=== PATIENT | male | born 1950 | race Caucasian/White ===

== ENCOUNTER → 2019-05-31 | Outpatient (CLI) | payer MEDICARE, OTHER ==
[2019-05-31 11:28] LABS: HCT 44.9 % (39.0-53.0); HGB 15.5 gm/dL (13.0-17.5); MCH 30.5 pg (25.0-35.0); MCHC 34.5 g/dL (31.0-37.0); MCV 88.2 fL (80.0-100.0); Mean Platelet Volume 7.2; Platelet Count 162 k/uL (150-450); RBC 5.09 m/uL (4.30-5.90); RDW 13.1 % (11.5-15.5); WBC 5.3 k/uL (3.8-10.6)
[2019-05-31 11:33] LABS: Appearance,Urine Clear (Clear); Bilirubin,Urine Negative (Negative); Blood,Urine Negative (Negative); Color,Urine Yellow; Glucose,Urine (UA) Negative (Negative); Ketones,Urine Negative (Negative); Leukocyte Esterase,Urine Negative (Negative); Nitrite,Urine Negative (Negative); PH, Urine 5.5 (5.0-8.0); Protein,Urine Negative (Negative); Specific Gravity,Urine 1.014 (1.001-1.035); Urobilinogen,Urine <2.0 mg/dL (<2.0)
[2019-05-31 11:38] LABS: ALT 33 U/L (21-72); AST 23 U/L (17-59); African American GFR (CKD) >90 (>60 ml/min/1.73 sqM); Albumin 4.1 g/dL (3.5-5.0); Alkaline Phosphatase 70 U/L (38-126); Anion Gap 10 mmol/L; Blood Urea Nitrogen 16 mg/dL (9-20); Calcium 9.2 mg/dL (8.4-10.2); Carbon Dioxide 27 mmol/L (22-30); Chloride 104 mmol/L (98-107); Glucose 137 mg/dL (74-99); Potassium 3.8 mmol/L (3.5-5.1); Sodium 141 mmol/L (137-145); Total Bilirubin 0.7 mg/dL (0.2-1.3); Total Protein 6.6 g/dL (6.3-8.2)
[2019-05-31 11:47] LABS: INR 0.9 (<1.2)
[2019-05-31 11:48] LABS: Partial Thromboplastin Time 22.2 sec (22.0-30.0); Prothrombin Time 9.9 sec (9.0-12.0)
== END | disposition home or self-care (01) ==
LOC: LABPAT 10:14
PROVIDERS: ATTEND Orthopaedic Surgery
DX: Z01.818 Encounter for other preprocedural examination (principal); Z01.812 Encounter for preprocedural laboratory examination
CPT/HCPCS: 36415; 80053; 81003; 85027; 85610; 85730; 86850; 86900; 86901; 87070; 93005

== ENCOUNTER 2019-06-12 07:49 | Inpatient (IN) | payer MEDICARE, OTHER ==
[2019-06-06 13:04] VITALS: BMI 34.7
[~2019-06-12 07:49] MED LIST: ACETAMINOPHEN TAB 500 MG TAB PO ONE; DEXAMETHASONE SOD PHOSPHATE 10 MG/ML 1 ML VIAL IV ONE; GABAPENTIN 300 MG CAP PO ONE; LIDOCAINE 1% 20 ML VIAL (10MG/ML) FOR IV START INTRADERMA PRN; MELOXICAM 7.5 MG TAB PO ONE; MIDAZOLAM 2 MG/2 ML VIAL IV PRN; ONDANSETRON 4 MG/2 ML VIAL IVP ONE; ROPIVACAINE 246.25 MG, EPINEPHrine 0.5 MG, KETOROLAC 30 MG, cloNIDine HCL/PF 80 MCG, WA... MISCELLANE ONE; SCOPOLAMINE 1.5MG/72HR PATCH TRANSDERM ONE; TRANEXAMIC ACID 1,000 MG in SODIUM CHLORIDE 0.9% 100 ML IVPB ONE
[2019-06-12] MEDS: LACTATED RINGERS 1,000 ML IV SCH (08:24)
[2019-06-12] MEDS ORDERED: MAGNESIUM HYDROXIDE 2,400 MG/10 ML CUP PO PRN (08:46)
[2019-06-12] MEDS ORDERED: hydrOXYzine PAMOATE 25 MG CAP PO PRN (08:46)
[2019-06-12] MEDS ORDERED: HYDROmorphone 0.5 MG/0.5 ML SYRINGE IVP PRN ×3 (08:46)
[2019-06-12] MEDS ORDERED: HYDROcodone/APAP 5-325MG 1 EACH TAB PO PRN (08:46)
[2019-06-12] MEDS ORDERED: DIAZEPAM 5 MG TAB PO PRN (08:46)
[2019-06-12] MEDS ORDERED: ONDANSETRON 4 MG/2 ML VIAL IVP PRN (08:46)
[2019-06-12] MEDS ORDERED: NALOXONE 0.4 MG/ML 1 ML VIAL IV PRN (08:46)
[2019-06-12] MEDS ORDERED: ALBUTEROL INHALER 60 PUFF/8 GM INHALER INHALATION ONE (09:15)
[2019-06-12] MEDS ORDERED: SODIUM CHLORIDE 0.9% 100 ML BAG ONE (09:15)
[2019-06-12] MEDS ORDERED: SUCCINYLCHOLINE CHLORIDE VIAL 200 MG/10 ML VIAL IV ONE (09:15)
[2019-06-12] MEDS ORDERED: MIDAZOLAM 2 MG/2 ML VIAL ONE (09:15)
[2019-06-12] MEDS ORDERED: KETAMINE 10 MG/ML 20 ML VIAL ONE (09:15)
[2019-06-12] MEDS ORDERED: TRANEXAMIC ACID 1,000 MG/10 ML VIAL ONE (09:15)
[2019-06-12] MEDS ORDERED: PROPOFOL 10 MG/ML 20 ML VIAL IV ONE (09:15)
[2019-06-12] MEDS ORDERED: DEXAMETHASONE SOD PHOS (MDV) 100 MG/10 ML VIAL ONE (09:15)
[2019-06-12] MEDS ORDERED: fentaNYL (PF) 50 MCG/ML 2 ML AMP ONE (09:15)
[2019-06-12] MEDS ORDERED: ePHEDrine SULFATE/0.9% NACL/PF 50 MG/5 ML SYRINGE IV ONE (09:15)
[2019-06-12] MEDS ORDERED: LACTATED RINGERS 1,000 ML IV ONE (10:00)
[2019-06-12] MEDS ORDERED: ceFAZolin 3,000 MG in SODIUM CHLORIDE 0.9% IRRIGATIO 3,000 ML IRRIGATION ONE (10:21)
--- NOTE | 2019-06-12 11:09 | P.OP ---
Date of Procedure: 06/12/19 Preoperative Diagnosis: Severe osteoarthritis right hip Postoperative Diagnosis: Severe osteoarthritis right hip Procedure(s) Performed: Right total hip arthroplasty with a direct anterior approach Implants: Estrada and nephew Polarstem size 4 standard Estrada [employer] Nephew R3, 3 hole acetabular shell, 52 mm Estrada [employer] Nephew reflection 6.5 mm cancellus screw, 20 mm 2 Estrada [employer] Nephew R3, XLPE 20 acetabular liner Estrada & Nephew Oxinium femoral head 36 m, +0 All components were press-fit. The articulation is Oxinium on polyethylene. Anesthesia: spinal Surgeon: Terry Garcia Veneer Jointer Offbearer #1: Milana Thorpe Estimated Blood Loss (ml): 300 (134 mL returned with Cell Saver) Pathology: other (Femoral head) Condition: stable Disposition: PACU Indications for Procedure: After failure of conservative treatment we discussed the surgical and nonsurgical treatment options at length. Patient wishes to proceed with a total hip arthroplasty with a direct anterior approach. Complications specific to this procedure were discussed at length, including but not limited to infection, leg length discrepancy, dislocation, and nerve injury. Patient is aware of all these complications and informed consent was obtained Operative Findings: The operative findings are consistent with severe osteoarthritis of the right hip Description of Procedure: Patient was seen and evaluated in the preoperative area, consent was reviewed, and the surgical site was marked with a skin marker. Patient was then brought to the operating room and given prophylactic antibiotics intravenously. 1 g of Tranexamic acid was also given. A spinal anesthetic was administered by the anesthesia department. The patient was then placed on the Brave table with the bony prominences well-padded. The hip area was then prepped and draped in usual sterile fashion. A universal timeout was then performed, which confirmed the patient's name, surgical site, ALLERGIES, and procedure being performed. Next the incision site was located at 1 cm distal and 1 cm lateral to the anterior superior iliac spine. The skin and subcutaneous tissues were sharply incised. Incision was carefully dissected down to the fascia overlying the tensor fascia robel muscle. This fascia was then incised in line with the incision. Next, using blunt finger dissection, the tensor fascia robel muscle was dissected off its investing fascia. The muscle was then carefully retracted laterally with a cobra retractor over the lateral neck of the femur. Next, the circumflex vessels were identified and cauterized using the AquaMantis device. The anterior hip capsule was then exposed. The capsule was then opened and an inverted T fashion. Cobra retractors were then placed intracapsularly. The proximal femur was then visualized. The femoral neck was then osteotomized appropriate level above the lesser trochanter. Small amount of traction was placed with the Brave table. A small wedge of bone was then removed from the remaining femoral head. Next, using a corkscrew femoral head was easily removed from the acetabulum. On gross visual inspection, the femoral head had complete loss of articular cartilage in m ultiple periarticular osteophytes. Attention was then turned to the acetabulum. the acetabulum was exposed and any remaining labrum was excised. Sequential reaming of the acetabulum was performed using fluoroscopic guidance. When the appropriate size was reached, a trial was then placed. The position and fit of the trial was checked with fluoroscopy. The trial was then removed. Then, using fluoroscopic guidance, the final implant was impacted at 20 of anteversion and 40 of abduction, and fully seated in the acetabulum. 2 screws were then placed in the acetabulum. Again fluoroscopy was used to check position of the screws. Next, the liner was then impacted, with a 20 elevated liner located in the anterior superior quadrant. Component locking was confirmed. Attention was then directed to the femur. With the aid of the Brave table, the femur was externally rotated to approximately 130, extended, and abducted under the opposite leg. A side hook was then placed under the proximal femur, and the side hook elevator was used to elevate the proximal femur. Retractors were then placed. A capsular release was performed, as well as a release of the conjoined tendon, which afforded excellent visualization of the proximal femur. Next, a box osteotome was used to lateralize the proximal femur. A hand winder was then used to locate the femoral canal. Sequential broaching was then performed with appropriate size which afforded excellent fixation in the proximal femur. A trial was then placed with appropriate head and neck, and the hip was gently reduced with the aid of the Brave table. Fluoroscopy was then used to check position of the components, as well as to ensure equal leg lengths. The hip was then gently dislocated and the trials were then removed. Final implants were then impacted and the hip was again reduced. Final fluoroscopic x-rays confirmed that the components were in anatomic position, as well as equal leg lengths. The hip was also taken through range of motion, and found to be stable. The hip was then copiously irrigated with antibiotic solution with pulsatile lavage. The hip was then irrigated with Irrisept solution. The soft tissues were then injected with a ropivacaine solution, which consisted of 246.25 mg of ropivacaine, 0.5 mg of epinephrine, 30 mg of Toradol, 80 g of clonidine, and 48.45 mL of sterile water, for a total of 100 mL of fluid injected. A second dose of 1 g of Tranexamic acid was also given. the fascia was then closed with 2-0 strata fix suture. The subcutaneous tissue was closed with 3-0 Vicryl. The subcuticular tissue was closed with 3-0 strata fix suture. The skin was then closed with Dermabond glue and a sterile silver dressing. The patient was then transferred to the recovery room in stable c ondition. The catering administrative assistant EDWARDO Arana was required due to the complexity of surgery, and the need for skilled surgical scheduler for positioning, draping, exposure, retraction, and closure of the wound.
--- NOTE | 2019-06-12 11:22 | XR ---
EXAMINATION TYPE: XR Hip Limited RT DATE OF EXAM: 06/12/2019 COMPARISON: NONE HISTORY: Postop TECHNIQUE: One view submitted. FINDINGS: There is postsurgical change in near anatomic alignment. There is soft tissue edema and emphysema. IMPRESSION: 1. Postoperative change. Appears in near-anatomic alignment.
[2019-06-12] MEDS: HYDROmorphone 0.5 MG/0.5 ML SYRINGE IVP PRN ×2 (12:11→13:16)
--- NOTE | 2019-06-12 12:50 | FL ---
EXAMINATION TYPE: FL guidance operating room DATE OF EXAM: 06/12/2019 HISTORY: Flouroscopy time 39 seconds of fluoroscopy provided. IMPRESSION: 1. Fluoroscopy time.
--- NOTE | 2019-06-12 16:55 | P.CONS ---
History of Present Illness - Reason for Consult Consult date: 06/12/19 - History of Present Illness Patient is 69-year-old male with a PMH of hypertension, hyperlipidemia, and hip osteoarthritis with admitted to the hospital for scheduled right total hip arthroplasty, which the patient underwent uneventfully earlier today. The patient was seen postoperatively on the surgical unit. He reported excellent control of his pain, at the time of the interview at a 0 out of 10. He endorsed mild nausea and dry heaving though denied any additional complaints. He denied chest pain, shortness of breath, fever, chills, diarrhea, or vomiting. The patient notes excellent compliance with all of his medications at home. Review of Systems Pertinent positives and negatives as discussed in HPI, a complete review of systems was performed and all other systems are negative. Past Medical History Past Medical History: Hyperlipidemia, Hypertension, Osteoarthritis (OA) History of Any Multi-Drug Resistant Organisms: None Reported Past Surgical History: Hernia Repair Additional Past Surgical History / Comment(s): one eye CATARACT sx, ANAL POLYP, ORAL SX Past Anesthesia/Blood Transfusion Reactions: No Reported Reaction Past Psychological History: No Psychological Hx Reported Smoking Status: Former smoker Past Alcohol Use History: Occasional Additional Past Alcohol Use History / Comment(s): quit smoking approx 1993, smoked dada sweet cigars Past Drug Use History: None Reported - Past Family History Mother Family Medical History: Cancer Medications and Allergies Home Medications Medication Instructions Recorded Confirmed Type Potassium Chloride [K-Tab ER] 10 meq PO DAILY 07/10/14 06/12/19 History Simvastatin [Zocor] 20 mg PO HS 07/10/14 06/12/19 History amLODIPine BESYLATE/BENAZEPRIL 1 each PO QAM 07/10/14 06/12/19 History [Lotrel 5-20 mg Capsule] Acetaminophen [Tylenol] 325 - 650 mg PO Q4H PRN 06/06/19 06/12/19 History Glucos Sul 2Kcl/MSM/Chond/C/Mn 1 each PO DAILY 06/06/19 06/12/19 History [Glucosamine Chondroitin Cap] Hydrochlorothiazide 25 mg PO QAM 06/06/19 06/12/19 History Metoprolol Tartrate [Lopressor] 50 mg PO QAM 06/06/19 06/12/19 History Ubidecarenone [Co Q-10] 100 mg PO DAILY 06/06/19 06/12/19 History Aspirin 325 mg PO BID #60 tab 06/12/19 Rx Sennosides [Senokot] 1 tab PO BID #60 tablet 06/12/19 Rx Allergies Allergy/AdvReac Type Severity Reaction Status Date / Time No Known Allergies Allergy Verified 06/12/19 08:14 Physical Exam Vitals: Vital Signs Temp Pulse Pulse Resp BP BP Pulse Ox 06/12/19 15:13 85 17 06/12/19 15:00 97.5 F L 85 17 157/87 93 L 06/12/19 14:37 83 16 137/78 94 L 06/12/19 14:04 83 16 137/83 95 06/12/19 13:35 73 16 139/82 92 L 06/12/19 13:09 77 16 146/83 95 06/12/19 12:48 77 71 H 146/87 94 L 06/12/19 12:33 79 16 152/90 94 L 06/12/19 12:18 77 16 152/89 92 L 06/12/19 12:04 77 16 156/89 93 L 06/12/19 11:45 77 16 167/86 95 06/12/19 11:42 97.1 F L 70 16 173/87 97 06/12/19 08:10 98.1 F 65 16 150/90 94 L Intake and Output 06/12/19 06/12/19 06/12/19 06:59 14:59 22:59 Intake Total 1551 Output Total 300 Balance 1251 Intake: IV 1551 Output: Estimated Blood Loss 300 Other: Voiding Method Urinal Weight 105.687 kg General: non toxic, no distress, appears at stated age, obese Derm: no unusual rashes/lesions no unusual ecchymoses, warm, dry Head: atraumatic, normocephalic, symmetric Eyes: EOMI, no lid lag, anicteric sclera, pupils equal round reactive to light ENT: Nose and ears atraumatic, no thrush, no pharyngeal erythema Neck: No thyromegaly, no cervical lymphadenopathy, trachea midline, supple Mouth: no lip lesion, mucus membranes moist Cardiovascular: S1S2 reg, no murmur, positive posterior tibial pulse bilateral, no edema, capillary refill less than 2 seconds Lungs: CTA bilateral, no rhonchi, no rales , no accessory muscle use Abdominal: soft, nontender to palpation, no guarding, no appreciable organomegaly, normal bowel sounds Ext: Right anterior hip dressings, clean and dry, no gross muscle atrophy, muscle strength 5 out of 5 in all 4 extremities except right lower extremity due to pain, no contractures Neuro: CN II-XI grossly intact, light touch intact all 4 extremities, finger to nose within normal limits, Psych: Alert, oriented, appropriate affect Assessment and Plan Plan: Right hip OA status post right anterior hip arthroplasty postop day #0 -Management including pain control as per orthopedic surgery Hypertension, hyperlipidemia -Continue with home meds DVT proph -As per orthopedics
[2019-06-12] MEDS: SODIUM CHLORIDE 0.9% 1,000 ML IV SCH ×2 (18:10→20:29)
[2019-06-12] MEDS: ASPIRIN 325 MG TAB PO SCH (20:29)
[2019-06-12] MEDS ORDERED: SENNOSIDES-DOCUSATE SODIUM 1 EACH TAB PO SCH (21:00)
[2019-06-12] MEDS ORDERED: ATORVASTATIN 10 MG TAB PO SCH (21:00)
[2019-06-12] MEDS: HYDROcodone/APAP 5-325MG 1 EACH TAB PO PRN (21:52)
[2019-06-13 02:21] VITALS: TEMP 97.9
[2019-06-13] MEDS: LACTATED RINGERS 1,000 ML IV SCH (02:27)
[2019-06-13] MEDS: ASPIRIN 325 MG TAB PO SCH (07:39)
[2019-06-13] MEDS: HYDROcodone/APAP 5-325MG 1 EACH TAB PO PRN (07:41)
[2019-06-13 07:48] LABS: African American GFR (CKD) >90 (>60 ml/min/1.73 sqM); Anion Gap 12 mmol/L; Blood Urea Nitrogen 17 mg/dL (9-20); Calcium 8.6 mg/dL (8.4-10.2); Carbon Dioxide 22 mmol/L (22-30); Chloride 106 mmol/L (98-107); Glucose 125 mg/dL (74-99); Potassium 3.8 mmol/L (3.5-5.1); Sodium 140 mmol/L (137-145)
[2019-06-13 07:57] VITALS: BP 123/68; PULSE 93; RESP 16
[2019-06-13 07:58] LABS: Basophils % (A) 0 %; Eosinophils % (A) 0 %; HCT 39.4 % (39.0-53.0); HGB 13.2 gm/dL (13.0-17.5); Lymphocytes # (A) 1.1 k/uL (1.0-4.8); Lymphocytes % (A) 10 %; MCH 30.3 pg (25.0-35.0); MCHC 33.5 g/dL (31.0-37.0); MCV 90.5 fL (80.0-100.0); Mean Platelet Volume 6.9; Monocytes # (A) 0.8 k/uL (0-1.0); Monocytes % (A) 7 %; Neutrophils # (A) 8.7 k/uL (1.3-7.7); Neutrophils % (A) 81 %; Platelet Count 151 k/uL (150-450); RBC 4.35 m/uL (4.30-5.90); RDW 13.3 % (11.5-15.5); WBC 10.8 k/uL (3.8-10.6)
--- NOTE | 2019-06-13 08:21 | P.DS ---
Providers Date of admission: 06/12/19 07:49 Expected date of discharge: 06/13/19 Attending physician: Terry Garcia Consults: 06/12/19 08:46 Consult Physician Routine Consulting Provider: Lou Roca Consult Reason/Comments: medical management Do you want consulting provider notified?: Yes Primary care physician: Mat Sinha - Discharge Diagnosis(es) (1) Status post total hip replacement, right Current Visit: Yes Status: Acute (2) Primary osteoarthritis of right hip Current Visit: Yes Status: Acute Hospital Course: This is a 69-year-old male with known history of degenerative arthritis of the right hip. The patient presents for evaluation. After discussion and consideration patient elects to proceed with total hip arthroplasty. The patient is seen preoperatively by his primary care physician and cleared for surgery. Patient is admitted to [facility] on 06/12/2019 for total hip arthroplasty. The procedures performed without complication or sequelae. The patient is doing well postoperatively. Labs and vital signs are stable on day of discharge. On day of discharge patient's hip incision is healing well. There is minimal erythema. There is no drainage noted at this time. There is minimal soft tissue swelling to the hip and thigh. Patient has full foot and ankle motion without difficulty or pain. Neurovascular status to the right lower extremity is intact. Patient is discharged to home in good condition. Please see med rec for accurate list of home medications. Plan - Discharge Summary Discharge Rx Participant: Yes New Discharge Prescriptions: New Aspirin 325 mg PO BID #60 tab Sennosides [Senokot] 1 tab PO BID #60 tablet HYDROcodone/APAP 7.5-325MG [[place] 7.5-325] 1 - 2 tab PO Q4-6H PRN #50 tab PRN Reason: Pain No Action Simvastatin [Zocor] 20 mg PO HS Potassium Chloride [K-Tab ER] 10 meq PO DAILY amLODIPine BESYLATE/BENAZEPRIL [Lotrel 5-20 mg Capsule] 1 each PO QAM Ubidecarenone [Co Q-10] 100 mg PO DAILY Metoprolol Tartrate [Lopressor] 50 mg PO QAM Hydrochlorothiazide 25 mg PO QAM Glucos Sul 2Kcl/MSM/Chond/C/Mn [Glucosamine Chondroitin Cap] 1 each PO DAILY Acetaminophen [Tylenol] 325 - 650 mg PO Q4H PRN PRN Reason: Pain Discharge Medication List Potassium Chloride [K-Tab ER] 10 meq PO DAILY 07/10/14 [History] Simvastatin [Zocor] 20 mg PO HS 07/10/14 [History] amLODIPine BESYLATE/BENAZEPRIL [Lotrel 5-20 mg Capsule] 1 each PO QAM 07/10/14 [History] Acetaminophen [Tylenol] 325 - 650 mg PO Q4H PRN 06/06/19 [History] Glucos Sul 2Kcl/MSM/Chond/C/Mn [Glucosamine Chondroitin Cap] 1 each PO DAILY 06/06/19 [History] Hydrochlorothiazide 25 mg PO QAM 06/06/19 [History] Metoprolol Tartrate [Lopressor] 50 mg PO QAM 06/06/19 [History] Ubidecarenone [Co Q-10] 100 mg PO DAILY 06/06/19 [History] Aspirin 325 mg PO BID #60 tab 06/12/19 [Rx] Sennosides [Senokot] 1 tab PO BID #60 tablet 06/12/19 [Rx] HYDROcodone/APAP 7.5-325MG [[place] 7.5-325] 1 - 2 tab PO Q4-6H PRN #50 tab 06/13/19 [Rx] Follow up Appointment(s)/Referral(s): Terry Garcia DO [Doctor of Osteopathic Medicine] - 2 Weeks Activity/Diet/Wound Care/Special Instructions: Weightbearing as tolerated with walker. Leave dressing intact. Dressing may be removed by home care nurse or by patient in 10 days. May shower with dressing on. Recommend use of compression stockings daily for at least 2 weeks during the day to help prevent swelling and blood clots. May remove at night before sleeping. Please follow-up with [facility] in 2 weeks and call with any questions or concerns, . Discharge Disposition: HOME WITH HOME HEALTH SERVICES
[2019-06-13] MEDS ORDERED: POTASSIUM CHLORIDE ER 10 MEQ TAB.ER.PRT PO SCH (09:00)
[2019-06-13] MEDS ORDERED: HYDROCHLOROTHIAZIDE 25 MG TAB PO SCH (09:00)
[2019-06-13] MEDS ORDERED: LISINOPRIL 20 MG TAB PO SCH (09:00)
[2019-06-13] MEDS ORDERED: NON FORMULARY DRUG (Ubidecarenone [Co Q-10] 100 MG) PO SCH (09:00)
[2019-06-13] MEDS ORDERED: METOPROLOL TARTRATE 50 MG TAB PO SCH (09:00)
[2019-06-13] MEDS ORDERED: MELOXICAM 7.5 MG TAB PO SCH (09:00)
[2019-06-13] MEDS ORDERED: amLODIPine 5 MG TAB PO SCH (09:00)
== END 2019-06-13 11:10 | disposition home health service (06) | DRG 470 ==
LOC: 2ORMAIN 07:49 → 4SSUR 14:37
PROVIDERS: ADMIT Orthopaedic Surgery; ATTEND Orthopaedic Surgery
PROC: 0SR906A Replacement of Right Hip Joint with Oxidized Zirconium on Polyethylene Synthetic Substitute, Uncemented, Open Approach (ICD-10-PCS; principal; 2019-06-12 09:10)
DX: M16.11 Unilateral primary osteoarthritis, right hip (principal); E78.5 Hyperlipidemia, unspecified; I10 Essential (primary) hypertension; Z79.82 Long term (current) use of aspirin; Z87.891 Personal history of nicotine dependence; Z98.49 Cataract extraction status, unspecified eye; Z98.890 Other specified postprocedural states; Z80.9 Family history of malignant neoplasm, unspecified
CPT/HCPCS: 36415; 73501; 80048; 85025; 86850; 86900; 86901; 88300

== ENCOUNTER 2019-09-29 16:30 | Emergency (ER) | payer MEDICARE, OTHER ==
[2019-09-29 16:48] VITALS: TEMP 98
[2019-09-29] MEDS ORDERED: CYCLOBENZAPRINE 10 MG TAB PO STA (17:12)
[2019-09-29] MEDS ORDERED: KETOROLAC 30 MG/ML 1 ML VIAL IM STA (17:12)
[2019-09-29] MEDS ORDERED: LIDOCAINE 5% PATCH TOPICAL STA (17:13)
--- NOTE | 2019-09-29 17:13 | ED ---
General Adult HPI - General Chief complaint: Extremity Injury, Lower Stated complaint: leg pain Time Seen by Provider: 09/29/19 16:48 Source: patient Mode of arrival: ambulatory Limitations: no limitations - History of Present Illness Initial comments: Patient is a 69-year-old male with history of chronic back pain presenting to the emergency department with chief complaint of left leg pain. Patient states several days ago he was bending over when he felt sudden pop in the left lower back and since continues to have pain radiating along the posterior aspect of the left lower extremity. Patient reports pain with ambulation and now he is to use a cane to ambulate. Patient already scheduled an appointment with an software licensing specialist but states the pain is getting worse so he came to ED. Patient denies saddle anesthesia, urinary or bowel incontinence. He states the pain is alleviated when he sitting or laying. Denies any shortness of breath chest pain. He also reports some left hip pain. Denies abdominal pain. - Related Data Home Medications Medication Instructions Recorded Confirmed Potassium Chloride [K-Tab ER] 10 meq PO DAILY 07/10/14 06/12/19 Simvastatin [Zocor] 20 mg PO HS 07/10/14 06/12/19 amLODIPine BESYLATE/BENAZEPRIL 1 each PO QAM 07/10/14 06/12/19 [Lotrel 5-20 mg Capsule] Acetaminophen [Tylenol] 325 - 650 mg PO Q4H PRN 06/06/19 06/12/19 Glucos Sul 2Kcl/MSM/Chond/C/Mn 1 each PO DAILY 06/06/19 06/12/19 [Glucosamine Chondroitin Cap] Hydrochlorothiazide 25 mg PO QAM 06/06/19 06/12/19 Metoprolol Tartrate [Lopressor] 50 mg PO QAM 06/06/19 06/12/19 Ubidecarenone [Co Q-10] 100 mg PO DAILY 06/06/19 06/12/19 Previous Rx's Medication Instructions Recorded Aspirin 325 mg PO BID #60 tab 06/12/19 Sennosides [Senokot] 1 tab PO BID #60 tablet 06/12/19 HYDROcodone/APAP 7.5-325MG [[place] 1 - 2 tab PO Q4-6H PRN #50 tab 06/13/19 7.5-325] Cyclobenzaprine [Flexeril] 10 mg PO TID PRN #15 tab 09/29/19 Allergies Allergy/AdvReac Type Severity Reaction Status Date / Time No Known Allergies Allergy Verified 09/29/19 16:43 Review of Systems ROS Statement: Those systems with pertinent positive or pertinent negative responses have been documented in the HPI. ROS Other: All systems not noted in ROS Statement are negative. Past Medical History Past Medical History: Hyperlipidemia, Hypertension History of Any Multi-Drug Resistant Organisms: None Reported Past Surgical History: Hernia Repair Additional Past Surgical History / Comment(s): CATARACT, ANAL POLYP, R hip replacement Past Anesthesia/Blood Transfusion Reactions: No Reported Reaction Past Psychological History: No Psychological Hx Reported Smoking Status: Former smoker Past Alcohol Use History: Occasional Past Drug Use History: None Reported - Past Family History Mother Family Medical History: Cancer General Exam Limitations: no limitations General appearance: alert, in no apparent distress, obese Head exam: Present: atraumatic, normocephalic, normal inspection Eye exam: Present: normal appearance Pupils: Present: normal accommodation ENT exam: Present: normal exam, normal oropharynx, mucous membranes moist Neck exam: Present: normal inspection, full ROM Respiratory exam: Present: normal lung sounds bilaterally Cardiovascular Exam: Present: regular rate, normal rhythm, normal heart sounds Extremities exam: Present: normal inspection, full ROM, normal capillary refill, other (+2 ulnar and radial pulses bilaterally.) Back exam: Present: normal inspection, full ROM, tenderness, paraspinal tenderness (Left paraspinal tenderness in the lumbosacral region.), other (+2 dorsalis pedis and posterior tibialis bilaterally.). Absent: CVA tenderness (R), CVA tenderness (L), vertebral tenderness Neurological exam: Present: alert, oriented X3, normal gait (Uses contingently) Psychiatric exam: Present: normal affect, normal mood Skin exam: Present: warm, dry, intact, normal color Course Vital Signs 09/29/19 09/29/19 16:44 18:53 Temperature 98 F 98 F Pulse Rate 86 78 Respiratory 18 16 Rate Blood Pressure 140/87 138/70 O2 Sat by Pulse 97 99 Oximetry Medical Decision Making - Medical Decision Making History this 69-year-old male with history of chronic back pain presenting to the emergency room with a chief complaint of left leg pain. On exam patient does have left paraspinal tenderness in the lumbosacral region and radiates along the posterior aspect of the left lower from it. Patient does have a positive leg raise test. Patient does appear to have a lumbar radiculopathy. X-ray of the left hip is indicative of osteoarthritis. Patient was given Toprol, Flexeril and a Lidoderm patch. Reevaluation patient reports some improvement of symptoms, however he still has some mild pain with an ablation. Patient really has a scheduled appointment to see an software licensing specialist. Patient will be discharged with Flexeril. He was advised not to drive or operate heavy machinery when taking the medication. No chest pain, shortness of breath, abdominal pain, thoracic pain. No cauda equina. Case discussed with physician. Disposition Clinical Impression: Lumbar radiculopathy, acute Disposition: HOME SELF-CARE Condition: Stable Instructions (If sedation given, give patient instructions): Lumbar Radiculopathy (ED), Lower Back Exercises (ED) Additional Instructions: Please follow up with orthopedics. Take prescribed medication as directed. Do not drive or operate heavy machinery when taking the medication. Return to the emergency department if symptoms worsen. Prescriptions: Cyclobenzaprine [Flexeril] 10 mg PO TID PRN #15 tab PRN Reason: Muscle Spasm Is patient prescribed a controlled substance at d/c from ED?: No Referrals: Mat Sinha MD [Primary Care Provider] - 1-2 days Time of Disposition: 18:36
--- NOTE | 2019-09-29 17:41 | XR ---
Left hip HISTORY: Hip pain 2 views of left hip There is joint space loss, marginal spurring the left hip joint. Bone mineralization is maintained. N o fracture or dislocation. IMPRESSION: Osteoarthritis.
[2019-09-29] MEDS ORDERED: CYCLOBENZAPRINE 10MG STARTER 3 TAB BTL PO STA (18:36)
[2019-09-29 18:54] VITALS: BP 138/70; PULSE 78; RESP 16
== END 2019-09-29 18:53 | disposition home or self-care (01) ==
LOC: EC 16:30
DX: M54.16 Radiculopathy, lumbar region (principal); E78.5 Hyperlipidemia, unspecified; I10 Essential (primary) hypertension; Z96.641 Presence of right artificial hip joint; Z87.891 Personal history of nicotine dependence; Z79.899 Other long term (current) drug therapy
CPT/HCPCS: 73502; 99283; 96372; J1885

== ENCOUNTER 2021-07-08 09:39 | Day surgery (SDC) | payer MEDICARE, OTHER ==
[2021-07-02 11:05] VITALS: BMI 34.0
[~2021-07-08 09:39] MED LIST changes: -ACETAMINOPHEN TAB 500 MG TAB PO ONE; -DEXAMETHASONE SOD PHOSPHATE 10 MG/ML 1 ML VIAL IV ONE; -GABAPENTIN 300 MG CAP PO ONE; +LACTATED RINGERS 1,000 ML IV SCH; +LIDOCAINE 1% (10MG/ML) FOR IV START INTRADERMA PRN; -LIDOCAINE 1% 20 ML VIAL (10MG/ML) FOR IV START INTRADERMA PRN; -MELOXICAM 7.5 MG TAB PO ONE; -MIDAZOLAM 2 MG/2 ML VIAL IV PRN; -ONDANSETRON 4 MG/2 ML VIAL IVP ONE; -ROPIVACAINE 246.25 MG, EPINEPHrine 0.5 MG, KETOROLAC 30 MG, cloNIDine HCL/PF 80 MCG, WA... MISCELLANE ONE; -SCOPOLAMINE 1.5MG/72HR PATCH TRANSDERM ONE; -TRANEXAMIC ACID 1,000 MG in SODIUM CHLORIDE 0.9% 100 ML IVPB ONE
[2021-07-08 10:15] VITALS: TEMP 97.2
[2021-07-08] MEDS ORDERED: PROPOFOL 10 MG/ML 20 ML VIAL IV ONE (11:01)
--- NOTE | 2021-07-08 11:34 | P.PCN ---
Date of Procedure: 07/08/21 Procedure(s) Performed: BRIEF HISTORY: Patient is a 71-year-old pleasant white male scheduled for an elective colonoscopy as a part of screening for colorectal neoplasia. PROCEDURE PERFORMED: Colonoscopy. PREOPERATIVE DIAGNOSIS: Screening for colon cancer. IV sedation per Anesthesia. PROCEDURE: After informed consent was obtained, the patient, was brought into the endoscopy unit. IV sedation was administered by Anesthesia under continuous monitoring. Digital rectal examination was normal. Initially the Olympus CF-160 flexible video colonoscope was then inserted in the rectum, gradually advanced into the cecum without any difficulty. Careful examination was performed as the scope was gradually being withdrawn. Ileocecal valve and the appendiceal orifice were visualized and appeared normal. Prep was excellent. Mucosa of the cecum, ascending colon, transverse colon, descending colon, sigmoid colon, and rectum appeared normal. Retroflexion was performed in the rectum and no lesions were seen. Moderate sigmoid diverticulosis seen. The patient tolerated the procedure well. IMPRESSION: Normal-appearing colon from rectum to cecum no evidence of colorectal neoplasia. Moderate sigmoid diverticulosis. RECOMMENDATIONS: Findings of this examination were discussed with the patient as well as his family. He was advised to have a repeat screening colonoscopy in 10 years..
[2021-07-08 11:49] VITALS: BP 113/66; PULSE 57; RESP 16
== END 2021-07-08 12:26 | disposition home or self-care (01) ==
LOC: ORWHC2ENDO 09:39 → MERGE 11:50 → ORWHC2ENDO 12:26
PROVIDERS: ATTEND Internal Medicine Gastroenterology
DX: Z12.11 Encounter for screening for malignant neoplasm of colon (principal); K57.30 Diverticulosis of large intestine without perforation or abscess without bleeding; I10 Essential (primary) hypertension; E78.5 Hyperlipidemia, unspecified; Z96.641 Presence of right artificial hip joint; Z98.42 Cataract extraction status, left eye; Z98.890 Other specified postprocedural states; Z79.899 Other long term (current) drug therapy
CPT/HCPCS: J2704; G0121; 45378

== ENCOUNTER → 2023-11-07 | Outpatient (CLI) | payer MEDICARE, OTHER ==
--- NOTE | 2023-11-07 21:11 | US ---
EXAMINATION TYPE: US venous doppler duplex LE LT DATE OF EXAM: 11/07/2023 10:26 AM COMPARISON: NONE CLINICAL INDICATION: Male, 73 years old with history of M79.662 PAIN IN LEG R22.42 SWELLING, MASS LUM P; pain/swelling/ burning left lower leg x 4 years after torn meniscus SIDE PERFORMED: Left TECHNIQUE: The lower extremity deep venous system is examined utilizing real time linear array sonog adam with graded compression, doppler sonography and color-flow sonography. VESSELS IMAGED: Common Femoral Vein Deep Femoral Vein Greater Saphenous Vein * Femoral Vein Popliteal Vein Small Saphenous Vein * Proximal Calf Veins (* superficial vessels) Left Leg: Negative for DVT limited exam, poor visualization of small caliber vessels. Stat H/C pt. results called to Veronica linn IMPRESSION: 1. Left lower extremity ultrasound negative for deep venous thrombosis.
== END | disposition home or self-care (01) ==
LOC: RADUSWWP 09:57
PROVIDERS: ATTEND Internal Medicine
DX: M79.662 Pain in left lower leg (principal); R22.42 Localized swelling, mass and lump, left lower limb